=== PATIENT | male | born 1970 | race Caucasian/White ===

== ENCOUNTER 2017-06-13 16:31 | Emergency (ER) | payer OTHER ==
[~2017-06-13] VITALS: Ht 195.6 cm; Wt 125.0 kg
[2017-06-13 16:31] VITALS: BP 179/119
--- NOTE | 2017-06-13 18:09 | REP ---
PA and lateral chest: Comparison is the portable study of 06/24/2014. No sternal fracture is identified on plain films. Depending on symptomatology consider CT follow-up. There is no pneumothorax, hemothorax or pulmonary contusion. Lung srivastava are clear. Cardiac size normal. The ariella, mediastinum, bony thorax otherwise unremarkable. Impression: Essentially negative chest. No sternal fracture. Depending on symptomatology consider CT. Signed by Guido Soto MD 06/13/2017 06:00 P
[2017-06-13] MEDS ORDERED: IBUP-1022 PO (18:10)
--- NOTE | 2017-06-14 09:08 | ECGEPIP ---
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
== END 2017-06-13 18:31 | disposition home or self-care (01) ==
LOC: M ED 16:31
DX: S20.219A Contusion of unspecified front wall of thorax, initial encounter (principal); V49.40XA Driver injured in collision with unspecified motor vehicles in traffic accident, initial encounter; Y92.410 Unspecified street and highway as the place of occurrence of the external cause; Y93.89 Activity, other specified; Y99.9 Unspecified external cause status

== ENCOUNTER 2017-09-03 22:21 | Emergency (ER) | payer OTHER ==
[2017-09-03] MEDS: KETOROLAC 30 MG/ML VIAL (J1885) IV (23:45)
[2017-09-04 00:15] LABS: BASO # 0.1 10^3/uL (0.0-0.2); EOS # 0.2 10^3/uL (0.0-0.50); EOS % 2.5 % (0.0-3.0); HEMOGLOBIN 13.3 g/dl (14.0-18.0); IMMATURE GRANULOCYTE % 0.3 % (0-0); LYMPH # 2.3 10^3/uL (1.5-4.5); LYMPH % 25.7 % (24.0-44.0); MEAN CORPUSCULAR HEMOGLOBIN 28.2 pg (27.0-33.0); MEAN CORPUSCULAR HGB CONC 33.3 g/dl (32.0-36.5); MEAN CORPUSCULAR VOLUME 84.7 fl (80.0-96.0); MONO # 0.9 10^3/uL (0.0-0.8); MONO % 9.5 % (0.0-5.0); NEUTROPHILS # 5.4 10^3/uL (1.8-7.7); PLATELET COUNT, AUTOMATED 261 10^3/uL (150-450); RED BLOOD COUNT 4.72 10^6/uL (4.30-6.10); RED CELL DISTRIBUTION WIDTH 13.1 % (11.5-14.5); WHITE BLOOD COUNT 8.9 10^3/uL (4.0-10.0)
[2017-09-04 00:18] LABS: INR 0.96; PROTHROMBIN TIME 12.9 SECONDS (12.4-14.5)
[2017-09-04 00:40] LABS: ANION GAP 7 MEQ/L (8-16); BLOOD UREA NITROGEN 24 MG/DL (7-18); CALCIUM LEVEL 8.8 MG/DL (8.5-10.1); CARBON DIOXIDE LEVEL 27 MEQ/L (21-32); CHLORIDE LEVEL 104 MEQ/L (98-107); CPK CREATINE PHOSPHOKINASE 82 U/L (39-308); GLOMERULAR FILTRATION RATE > 60.0 (>60); GLUCOSE, FASTING 92 MG/DL (70-105); MB/CK RELATIVE INDEX 1.21 (< OR =4); POTASSIUM SERUM 3.9 MEQ/L (3.5-5.1); SODIUM LEVEL 138 MEQ/L (136-145); TROPONIN I < 0.02 NG/ML (< 0.10)
[2017-09-04] MEDS ORDERED: ISOVUE-370 76% 100ML VIAL (Q9967) As Ordered (01:26)
[2017-09-04] MEDS: NS 1,000 ML IV (01:30)
== END 2017-09-04 02:13 | disposition home or self-care (01) ==
LOC: M ED 22:21
DX: R07.89 Other chest pain (principal); Z91.040 Latex allergy status; Z88.1 Allergy status to other antibiotic agents; Z88.2 Allergy status to sulfonamides
CPT/HCPCS: Q9967

== ENCOUNTER 2018-09-08 00:26 | Emergency (ER) | payer OTHER ==
[~2018-09-08 00:26] MED LIST: IBUP-1022 PO; KETO10TAB PO
[2018-09-08] MEDS ORDERED: ASPIRIN 81 MG CHEW TABLET PO ONE (00:45)
[2018-09-08] MEDS ORDERED: NITROGLYCERIN 0.4 MG SUBL TABLET SL PRN (00:45)
[2018-09-08] MEDS ORDERED: DOXY100C PO (00:49)
[2018-09-08] MEDS ORDERED: TESS100C PO (00:49)
[2018-09-08 00:51] LABS: BASO # 0.1 10^3/uL (0.0-0.2); EOS # 0.2 10^3/uL (0.0-0.50); EOS % 2.4 % (0.0-3.0); HEMATOCRIT 40.4 % (42.0-52.0); HEMOGLOBIN 13.4 g/dl (13.5-17.5); LYMPH # 2.1 10^3/uL (1.5-4.5); LYMPH % 29.1 % (24.0-44.0); MEAN CORPUSCULAR HEMOGLOBIN 28.6 pg (27.0-33.0); MEAN CORPUSCULAR HGB CONC 33.2 g/dl (32.0-36.5); MEAN CORPUSCULAR VOLUME 86.3 fl (80.0-96.0); MONO # 0.6 10^3/uL (0.0-0.8); NEUTROPHILS # 4.2 10^3/uL (1.8-7.7); NEUTROPHILS % 59.2 % (36.0-66.0); PLATELET COUNT, AUTOMATED 269 10^3/uL (150-450); RED BLOOD COUNT 4.68 10^6/uL (4.30-6.10); WHITE BLOOD COUNT 7.1 10^3/uL (4.0-10.0)
[2018-09-08 01:02] VITALS: BP 140/84
[2018-09-08 01:05] LABS: INR 1.04; PROTHROMBIN TIME 13.7 SECONDS (12.1-14.4)
[2018-09-08 01:25] LABS: ALBUMIN 3.7 GM/DL (3.2-5.2); ALT/SGPT 22 U/L (12-78); BILIRUBIN,DIRECT 0.1 MG/DL (0.0-0.2); BILIRUBIN,TOTAL 0.6 MG/DL (0.2-1.0); BLOOD UREA NITROGEN 16 MG/DL (7-18); CALCIUM LEVEL 8.5 MG/DL (8.5-10.1); CARBON DIOXIDE LEVEL 26 MEQ/L (21-32); CHLORIDE LEVEL 106 MEQ/L (98-107); CPK CREATINE PHOSPHOKINASE 124 U/L (39-308); CREATININE FOR GFR 0.99 MG/DL (0.70-1.30); GLOMERULAR FILTRATION RATE > 60.0 (>60); GLUCOSE, FASTING 90 MG/DL (70-100); LIPASE 73 U/L (73-393); MB/CK RELATIVE INDEX 1.37 (< OR =4); SODIUM LEVEL 139 MEQ/L (136-145); TOTAL PROTEIN 6.8 GM/DL (6.4-8.2); TROPONIN I < 0.02 NG/ML (< 0.10)
[2018-09-08] MEDS ORDERED: ISOVUE-370 76% 100ML VIAL (Q9967) As Ordered ONE (01:31)
--- NOTE | 2018-09-08 02:15 | REPVR ---
EXAM: CT Angiography Chest With Contrast EXAM DATE/TIME: 09/08/2018 1:27 AM CLINICAL HISTORY: 48 years old, male; Pain; Chest pain; Type not specified TECHNIQUE: Axial computed tomographic angiography images of the chest with intravenous contrast using CT angiography protocol. All CT scans at this facility use at least one of these dose optimization techniques: automated exposure control; mA and/or kV adjustment per patient size (includes targeted exams where dose is matched to clinical indication); or iterative reconstruction. Coronal and sagittal reformatted images were created and reviewed. MIP reconstructed images were created and reviewed. CONTRAST: 75 ml of iso administered intravenously. COMPARISON: CT ANGIO CHEST 09/04/2017 1:33 AM FINDINGS: Pulmonary arteries: The main pulmonary artery measures 34 mm. No central pulmonary embolism is identified. Aorta: The ascending thoracic aorta measures 28 mm. Lungs: Motion artifact in the lungs with image degradation. Pleural space: Normal. No pneumothorax. No pleural effusion. Heart: Normal. No cardiomegaly. No pericardial effusion. Gallbladder and bile ducts: The gallbladder is contracted with no stones. Lymph nodes: Unremarkable. No enlarged lymph nodes. Bones/joints: Unremarkable. No acute fracture. Soft tissues: Unremarkable. IMPRESSION: There has been little change from 09/04/2017. No acute interval central pulmonary embolism is identified. Electronically signed by: Michael Smith On 09/08/2018 02:14:49 AM
[2018-09-08 04:00] VITALS: BP 135/86
[2018-09-08 04:02] LABS: CPK CREATINE PHOSPHOKINASE 177 U/L (39-308); MB/CK RELATIVE INDEX 1.07 (< OR =4); TROPONIN I < 0.02 NG/ML (< 0.10)
--- NOTE | 2018-09-08 10:48 | ECGEPIP ---
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
--- NOTE | 2018-09-08 10:48 | ECGEPIP ---
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
== END 2018-09-08 04:33 | disposition home or self-care (01) ==
LOC: M ED 00:26
DX: R07.9 Chest pain, unspecified (principal); Z91.048 Other nonmedicinal substance allergy status; Z91.040 Latex allergy status; Z88.2 Allergy status to sulfonamides; Z88.1 Allergy status to other antibiotic agents; Z79.899 Other long term (current) drug therapy
CPT/HCPCS: 71275; 80048; 80076; 82550; 82553; 83690; 85025; 85610; 85730; 93005; 93041; 94760; 99285; Q9967

== ENCOUNTER → 2018-10-17 | Outpatient (REF) | payer OTHER ==
[~2018-10-17] MED LIST changes: +DOXY100C PO; +TESS100C PO
[2018-10-17 13:26] LABS: CHOLESTEROL RISK RATIO 3.923 (<5); THYROID STIMULATING HORMONE 2.24 uIU/ML (0.358-3.740)
[2018-10-17 15:20] LABS: HEMOGLOBIN A1c 5.7 %
== END ==
LOC: M SFHCPLAZ 10:24
PROVIDERS: ATTEND Family Medicine
DX: Z13.228 Encounter for screening for other metabolic disorders (principal)

== ENCOUNTER 2018-12-23 00:33 | Emergency (ER) | payer OTHER ==
[~2018-12-23] VITALS: Ht 195.6 cm; Wt 143.2 kg
[2018-12-23] MEDS ORDERED: PRED20TA PO (02:26)
[2018-12-23] MEDS ORDERED: methylPREDNISolone INJ 125 MG/2 ML VIAL (J2930) IM ONE (02:30)
[2018-12-23 02:42] VITALS: BP 124/70
== END 2018-12-23 02:48 | disposition home or self-care (01) ==
LOC: M ED 00:33
DX: J30.2 Other seasonal allergic rhinitis (principal); Z88.2 Allergy status to sulfonamides; Z91.040 Latex allergy status; Z91.018 Allergy to other foods
CPT/HCPCS: 96372; 99283; J2930

== ENCOUNTER → 2019-01-02 | Outpatient (CLI) | payer OTHER ==
[~2019-01-02] MED LIST changes: +PRED20TA PO
--- NOTE | 2019-01-05 10:04 | SLEEPHOME ---
DATE OF STUDY: 01/02/2019 ORDERED BY: Dr. Gant Diagnostic home sleep testing was performed due to concern for the obstructive sleep apnea syndrome. For testing, a nocturnal T3 respiratory monitoring device was used. Continuous record was made of pulse, oxygen saturation, airflow, chest and abdominal strain and body position. 10 hours and 59 minutes of data were reviewed. There were 5 hours and 30 minutes marked as time in bed. During the interval marked time in bed. there were 190 respiratory events identified of 10 seconds in duration or greater for a respiratory event index of 34.5. The events were primarily obstructive. Baseline pulse rate 60 beats per minute, pulse rate ranged 25-86. Baseline saturation 95% and saturation fell to 78%. The oxygen desaturation index was 22 and testing was performed in both supine and nonsupine positions. IMPRESSION: Abnormal home sleep testing with repetitive respiratory events and oxygen desaturations to 78% with a respiratory event index of 34.5 is consistent with the obstructive sleep apnea syndrome. RECOMMENDATION: The patient should be encouraged to undergo formal sleep evaluation and in-laboratory pressure titration.
== END ==
LOC: M SLEEP HO 10:59
PROVIDERS: ATTEND Internal Medicine Pulmonary Disease
DX: G47.30 Sleep apnea, unspecified (principal)

== ENCOUNTER 2019-03-19 23:17 | Emergency (ER) | payer OTHER ==
[~2019-03-19] VITALS: Ht 195.6 cm; Wt 136.8 kg
[2019-03-19] MEDS ORDERED: ATOR1TAB21 PO (23:24)
[2019-03-19] MEDS ORDERED: RANI1TAB38 PO (23:24)
[2019-03-19] MEDS ORDERED: ASPI1CHW2 PO (23:24)
[2019-03-20] MEDS ORDERED: OFLO3OPSO OP (01:49)
[2019-03-20] MEDS ORDERED: AMOX500C PO (01:49)
[2019-03-20 02:00] VITALS: BP 130/78
== END 2019-03-20 02:02 | disposition home or self-care (01) ==
LOC: M ED 23:17
DX: H66.91 Otitis media, unspecified, right ear (principal); H10.33 Unspecified acute conjunctivitis, bilateral; E78.5 Hyperlipidemia, unspecified; Z79.82 Long term (current) use of aspirin; Z79.899 Other long term (current) drug therapy; Z88.2 Allergy status to sulfonamides; Z91.040 Latex allergy status; Z91.018 Allergy to other foods

== ENCOUNTER → 2019-05-03 | Outpatient (REF) | payer OTHER ==
[~2019-05-03] MED LIST changes: +AMOX500C PO; +ASPI1CHW2 PO; +ATOR1TAB21 PO; +OFLO3OPSO OP; +RANI1TAB38 PO
[2019-05-03 19:47] LABS: TOTAL 25(OH) VITAMIN D 25.1 NG/ML (30.0-100.0)
== END ==
LOC: M SFHCPLAZ 14:11
PROVIDERS: ATTEND Family Medicine
DX: R41.3 Other amnesia (principal)

== ENCOUNTER 2019-05-20 19:47 | Emergency (ER) | payer OTHER ==
[~2019-05-20] VITALS: Ht 195.6 cm; Wt 131.0 kg
[2019-05-20 19:48] VITALS: BP 136/74
[2019-05-20] MEDS ORDERED: IBUPROFEN 800 MG TAB PO ONE (21:45)
[2019-05-20] MEDS ORDERED: IBUP80TA PO (21:47)
== END 2019-05-20 22:09 | disposition home or self-care (01) ==
LOC: M ED 19:47
DX: M79.672 Pain in left foot (principal); Y93.01 Activity, walking, marching and hiking; Y92.9 Unspecified place or not applicable; E78.5 Hyperlipidemia, unspecified; Z88.2 Allergy status to sulfonamides; Z91.040 Latex allergy status; Z91.018 Allergy to other foods; Z79.899 Other long term (current) drug therapy; Z79.82 Long term (current) use of aspirin

== ENCOUNTER 2019-06-16 22:42 | Emergency (ER) | payer OTHER ==
[~2019-06-16] VITALS: Ht 195.6 cm; Wt 126.4 kg
[~2019-06-16 22:42] MED LIST changes: +IBUP80TA PO
[2019-06-16] MEDS ORDERED: NITR0.4S14 SL (23:11)
[2019-06-16] MEDS ORDERED: METO1TAB32 PO (23:11)
[2019-06-16] MEDS ORDERED: BUPR150T3 PO (23:11)
[2019-06-17 00:09] LABS: BLOOD UREA NITROGEN 19 MG/DL (7-18); CALCIUM LEVEL 8.8 MG/DL (8.5-10.1); CARBON DIOXIDE LEVEL 28 MEQ/L (21-32); CHLORIDE LEVEL 110 MEQ/L (98-107); CK-MB VALUE MASS 2.3 NG/ML (<3.6); CPK CREATINE PHOSPHOKINASE 91 U/L (39-308); CREATININE FOR GFR 1.19 MG/DL (0.70-1.30); GLOMERULAR FILTRATION RATE > 60.0 (>60); GLUCOSE, FASTING 97 MG/DL (70-100); MB/CK RELATIVE INDEX 2.53 (< OR =4); POTASSIUM SERUM 3.9 MEQ/L (3.5-5.1); SODIUM LEVEL 143 MEQ/L (136-145); TROPONIN I < 0.02 NG/ML (< 0.10)
[2019-06-17 00:11] LABS: BASO # 0.1 10^3/uL (0.0-0.2); BASO % 1.1 % (0.0-1.0); EOS # 0.2 10^3/uL (0.0-0.5); EOS % 3.3 % (0.0-3.0); HEMATOCRIT 40.7 % (42.0-52.0); LYMPH # 1.7 10^3/uL (1.5-5.0); LYMPH % 27.1 % (24.0-44.0); MEAN CORPUSCULAR HEMOGLOBIN 28.6 pg (27.0-33.0); MEAN CORPUSCULAR HGB CONC 31.9 g/dl (32.0-36.5); MEAN CORPUSCULAR VOLUME 89.5 fl (80.0-96.0); MONO # 0.6 10^3/uL (0.0-0.8); MONO % 9.2 % (0.0-5.0); NEUTROPHILS # 3.8 10^3/uL (1.5-8.5); NEUTROPHILS % 59.1 % (36.0-66.0); PLATELET COUNT, AUTOMATED 231 10^3/uL (150-450); RED BLOOD COUNT 4.55 10^6/uL (4.30-6.10); WHITE BLOOD COUNT 6.4 10^3/uL (4.0-10.0)
[2019-06-17] MEDS ORDERED: ISOVUE-370 76% 100ML VIAL (Q9967) As Ordered ONE (01:12)
[2019-06-17 01:15] LABS: CK-MB VALUE MASS 2.2 NG/ML (<3.6); CPK CREATINE PHOSPHOKINASE 97 U/L (39-308); MB/CK RELATIVE INDEX 2.27 (< OR =4); TROPONIN I < 0.02 NG/ML (< 0.10)
[2019-06-17] MEDS ORDERED: KETOROLAC 30 MG/ML VIAL (J1885) IV ONE (01:15)
--- NOTE | 2019-06-17 01:44 | REPVR ---
PROCEDURE INFORMATION: Exam: CT Angiography Chest With Contrast Exam date and time: 06/17/2019 1:18 AM Clinical history: 49 years old, male; Shortness of breath; Chest pain; Type not specified; Additional info: Chest pain, SOB TECHNIQUE: Imaging protocol: Computed tomographic angiography of the chest with intravenous contrast. 3D rendering: MIP reconstructed images were created and reviewed. Radiation optimization: All CT scans at this facility use at least one of these dose optimization techniques: automated exposure control; mA and/or kV adjustment per patient size (includes targeted exams where dose is matched to clinical indication); or iterative reconstruction. Contrast material: ISOVUE 370; Contrast volume: 100 ml; Contrast route: IV; COMPARISON: CT ANGIO CHEST 09/08/2018 1:30 AM FINDINGS: Pulmonary arteries: No focal pulmonary artery filling defect to suggest acute pulmonary embolus. Aorta: No thoracic aortic aneurysm or dissection. Lungs: Pulmonary vascular/interstitial pattern does not suggest active pulmonary edema. No suspicious lung mass or air space process. No central endobronchial lesion. Pleural space: No pleural effusion or pneumothorax. Heart: No cardiac enlargement or pericardial effusion. Lymph nodes: No enlarged mediastinal lymph nodes. Bones/joints: Bony structures show no acute fracture or destructive process. IMPRESSION: 1. No evidence of acute pulmonary embolus. 2. No other acute or concerning focal intrathoracic abnormality. Electronically signed by: Charlie Nelson On 06/17/2019 01:43:42 AM
[2019-06-17 02:28] VITALS: BP 119/69
--- NOTE | 2019-06-17 11:59 | ECGEPIP ---
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
== END 2019-06-17 02:30 | disposition home or self-care (01) ==
LOC: M ED 22:42
DX: R07.9 Chest pain, unspecified (principal); E78.5 Hyperlipidemia, unspecified; I11.9 Hypertensive heart disease without heart failure; Z79.82 Long term (current) use of aspirin; Z79.899 Other long term (current) drug therapy; Z88.2 Allergy status to sulfonamides
CPT/HCPCS: 71275; 80048; 82550; 82553; 85025; 93005; 93041; 94760; 96374; 99285; J1885; Q9967

== ENCOUNTER 2019-08-02 20:30 | Emergency (ER) | payer OTHER ==
[~2019-08-02] VITALS: Ht 195.6 cm; Wt 120.0 kg
[~2019-08-02 20:30] MED LIST changes: +BUPR150T3 PO; +METO1TAB32 PO; +NITR0.4S14 SL
[2019-08-02 20:35] VITALS: BP 140/83
[2019-08-02] MEDS ORDERED: MELO15TA28 PO (20:41)
[2019-08-02] MEDS ORDERED: ACETAMINOPHEN 500 MG TAB PO ONE (23:00)
--- NOTE | 2019-08-03 08:21 | REP ---
Left knee series: Five views. History: Trauma. Findings: Five views of the left knee demonstrate patellofemoral and mild tibiofemoral osteoarthritic spurring. There is no evidence of fracture or joint effusion. Impression: Mild three compartment osteoarthritic spurring. No traumatic abnormality. Electronically Signed by Sandeep Lewis MD 08/03/2019 08:13 A
== END 2019-08-02 23:56 | disposition home or self-care (01) ==
LOC: M ED 20:30
DX: S80.02XA Contusion of left knee, initial encounter (principal); W00.0XXA Fall on same level due to ice and snow, initial encounter; Y92.018 Other place in single-family (private) house as the place of occurrence of the external cause; E78.5 Hyperlipidemia, unspecified; Z79.899 Other long term (current) drug therapy; Z79.82 Long term (current) use of aspirin; Z88.1 Allergy status to other antibiotic agents; Z88.2 Allergy status to sulfonamides; Z91.018 Allergy to other foods; Z91.040 Latex allergy status

== ENCOUNTER → 2019-12-03 | Outpatient (CLI) | payer OTHER ==
[~2019-12-03] MED LIST changes: +MELO15TA28 PO
--- NOTE | 2019-12-05 11:51 | SLEEPCENT ---
DATE OF STUDY: 12/03/2019 ORDERED BY: Dr. Gant Nocturnal polysomnography was performed for evaluation of sleep physiology in this patient with a prior history of obstructive sleep apnea syndrome. 7 hours and 10 minutes of data were reviewed. There were 344.5 minutes of sleep identified. Sleep latency was normal at 12.5 minutes. Rapid eye movement (REM) latency was delayed at 138 minutes. Sleep architecture showed fragmentation. There were 3 REM cycles noted. Overall sleep efficiency was 80.8%. The patient's electrocardiogram showed a sinus rhythm with an average heart rate of 60 beats per minute. Electroencephalogram (EEG) showed normal waveforms for awake and sleep. There were 27 respiratory events identified of 10 seconds in duration or greater for an apnea-hypopnea index of 5.1. The events were primarily obstructive, not exclusive to sleep stage and not exclusive to body posture. Arousals from respiratory events occurred 0.9 times per hour. No significant oxygen desaturations were seen. The activity in the limb leads resulted in a limb movement arousal index of 12.2. There was 1 train of 30 events noted, IMPRESSSION: Obstructive sleep apnea syndrome (G47.33). Apnea-hypopnea index 5.1. RECOMMENDATION: Given the patient's symptoms, referral back to the sleep disorder center for pressure therapy is recommended. In the interim, alcohol and sedative avoidance should be practiced and caution exercised during the operation of motor vehicles.
== END ==
LOC: M SLEEP 20:00
PROVIDERS: ATTEND Internal Medicine Pulmonary Disease
DX: G47.33 Obstructive sleep apnea (adult) (pediatric) (principal)

== ENCOUNTER 2020-01-14 22:19 | Emergency (ER) | payer OTHER ==
[~2020-01-14] VITALS: Ht 195.6 cm; Wt 109.1 kg
[2020-01-14] MEDS ORDERED: AUGM875T28 PO (23:05)
[2020-01-14] MEDS ORDERED: BOOSTRIX/ADACEL VACCINE (DIPHTH/PERTUSS/ACELL/TETANUS) 0.5ML SYR IM ONE (23:15)
[2020-01-14] MEDS ORDERED: AUGMENTIN 875 MG TAB PO ONE (23:15)
[2020-01-14 23:35] VITALS: BP 110/71
== END 2020-01-14 23:36 | disposition home or self-care (01) ==
LOC: M ED 22:19
DX: S60.511A Abrasion of right hand, initial encounter (principal); W55.03XA Scratched by cat, initial encounter; Y92.89 Other specified places as the place of occurrence of the external cause; Y93.9 Activity, unspecified; Y99.9 Unspecified external cause status; Z88.0 Allergy status to penicillin; Z91.018 Allergy to other foods; Z91.040 Latex allergy status

== ENCOUNTER 2020-01-24 19:50 | Emergency (ER) | payer OTHER ==
[~2020-01-24] VITALS: Ht 195.6 cm; Wt 109.4 kg
[~2020-01-24 19:50] MED LIST changes: +AUGM875T28 PO
[2020-01-24 20:19] LABS: BASO # 0.1 10^3/uL (0.0-0.2); BASO % 1.3 % (0.0-1.0); EOS # 0.2 10^3/uL (0.0-0.5); EOS % 2.7 % (0.0-3.0); HEMATOCRIT 37.7 % (42.0-52.0); HEMOGLOBIN 12.5 g/dl (13.5-17.5); LYMPH # 1.7 10^3/uL (1.5-5.0); LYMPH % 26.3 % (24.0-44.0); MEAN CORPUSCULAR HEMOGLOBIN 28.8 pg (27.0-33.0); MEAN CORPUSCULAR HGB CONC 33.2 g/dl (32.0-36.5); MEAN CORPUSCULAR VOLUME 86.9 fl (80.0-96.0); MONO # 0.6 10^3/uL (0.0-0.8); MONO % 9.4 % (0.0-5.0); NEUTROPHILS # 3.8 10^3/uL (1.5-8.5); NEUTROPHILS % 60.1 % (36.0-66.0); PLATELET COUNT, AUTOMATED 250 10^3/uL (150-450); RED BLOOD COUNT 4.34 10^6/uL (4.30-6.10); WHITE BLOOD COUNT 6.3 10^3/uL (4.0-10.0)
[2020-01-24] MEDS ORDERED: IBUP-1022 PO (21:13)
[2020-01-24 21:27] VITALS: BP 130/77
--- NOTE | 2020-01-24 21:40 | ECGEPIP ---
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
--- NOTE | 2020-01-25 08:59 | REP ---
REASON: Chest pain. COMPARISON: 08/16/2018 the latest prior. FINDINGS: The technique utilized in obtaining the radiograph has magnified the cardiac silhouette and accentuated the interstitial markings. The superior mediastinal structures are midline. The cardiac silhouette is unremarkable in size, shape, and position. The diaphragmatic surfaces of the lungs are regular, and the costophrenic angles are clear. The pulmonary srivastava are clear. The imaged osseous structures are intact. IMPRESSION: There is no acute cardiopulmonary disease. Electronically Signed by Mat Parada DO 01/25/2020 09:22 A
== END 2020-01-24 21:30 | disposition home or self-care (01) ==
LOC: M ED 19:50
DX: M94.0 Chondrocostal junction syndrome [Tietze] (principal); K21.9 Gastro-esophageal reflux disease without esophagitis; E78.00 Pure hypercholesterolemia, unspecified; Z82.49 Family history of ischemic heart disease and other diseases of the circulatory system; Z79.899 Other long term (current) drug therapy; Z79.82 Long term (current) use of aspirin; Z88.1 Allergy status to other antibiotic agents; Z88.2 Allergy status to sulfonamides; Z91.018 Allergy to other foods; Z91.040 Latex allergy status

== ENCOUNTER → 2020-06-03 | Outpatient (CLI) | payer OTHER ==
[2020-06-03 14:35] LABS: BASO # 0.1 10^3/uL (0.0-0.2); BASO % 0.9 % (0.0-1.0); EOS # 0.2 10^3/uL (0.0-0.5); EOS % 2.4 % (0.0-3.0); HEMATOCRIT 42.1 % (42.0-52.0); HEMOGLOBIN 13.5 g/dl (13.5-17.5); LYMPH # 1.3 10^3/uL (1.5-5.0); MEAN CORPUSCULAR HEMOGLOBIN 29.1 pg (27.0-33.0); MEAN CORPUSCULAR HGB CONC 32.1 g/dl (32.0-36.5); MEAN CORPUSCULAR VOLUME 90.7 fl (80.0-96.0); MONO # 0.6 10^3/uL (0.0-0.8); MONO % 8.2 % (0.0-5.0); NEUTROPHILS # 4.6 10^3/uL (1.5-8.5); NEUTROPHILS % 69.1 % (36.0-66.0); PLATELET COUNT, AUTOMATED 258 10^3/uL (150-450); RED BLOOD COUNT 4.64 10^6/uL (4.30-6.10); WHITE BLOOD COUNT 6.7 10^3/uL (4.0-10.0)
[2020-06-03 14:59] LABS: ERYTHROCYTE SEDIMENTATION RATE 9 mm/hr (0-15)
[2020-06-03 15:15] LABS: ALBUMIN 3.6 GM/DL (3.2-5.2); ALT/SGPT 29 U/L (12-78); BILIRUBIN,TOTAL 0.5 MG/DL (0.2-1.0); BLOOD UREA NITROGEN 14 MG/DL (7-18); C REACTIVE PROTEIN QUANTITATIV < 0.30 MG/DL (0.00-0.30); CALCIUM LEVEL 9.5 MG/DL (8.5-10.1); CARBON DIOXIDE LEVEL 32 MEQ/L (21-32); CHLORIDE LEVEL 107 MEQ/L (98-107); CHOLESTEROL LEVEL 145 MG/DL (<200); CHOLESTEROL RISK RATIO 2.377 (<5); CREATININE FOR GFR 0.95 MG/DL (0.70-1.30); GLOMERULAR FILTRATION RATE > 60.0 (>60); GLUCOSE, FASTING 72 MG/DL (70-100); HDL CHOLESTEROL 61 MG/DL (>40); LDL CHOLESTEROL 65 MG/DL (<100); NON-HDL-C 84 MG/DL; POTASSIUM SERUM 4.1 MEQ/L (3.5-5.1); SODIUM LEVEL 138 MEQ/L (136-145); TOTAL PROTEIN 7.4 GM/DL (6.4-8.2); TRIGLYCERIDES LEVEL 96 MG/DL (<150)
== END ==
LOC: M LAB 13:34
PROVIDERS: ATTEND Family Medicine
DX: R63.4 Abnormal weight loss (principal)

== ENCOUNTER 2021-01-31 05:56 | Emergency (ER) | payer MEDICAID, OTHER, SELFPAY ==
[~2021-01-31] VITALS: Ht 195.6 cm; Wt 122.7 kg
[~2021-01-31 05:56] MED LIST changes: +BUPR150T12 PO; -BUPR150T3 PO
[2021-01-31 06:39] LABS: BASO # 0.1 10^3/uL (0.0-0.2); BASO % 1.3 % (0.0-1.0); EOS # 0.2 10^3/uL (0.0-0.5); EOS % 3.7 % (0.0-3.0); HEMATOCRIT 40.5 % (42.0-52.0); HEMOGLOBIN 13.2 g/dl (13.5-17.5); LYMPH # 1.7 10^3/uL (1.5-5.0); LYMPH % 27.7 % (24.0-44.0); MEAN CORPUSCULAR HEMOGLOBIN 28.9 pg (27.0-33.0); MEAN CORPUSCULAR HGB CONC 32.6 g/dl (32.0-36.5); MEAN CORPUSCULAR VOLUME 88.8 fl (80.0-96.0); MONO # 0.6 10^3/uL (0.0-0.8); MONO % 9.9 % (2.0-8.0); NEUTROPHILS # 3.4 10^3/uL (1.5-8.5); NEUTROPHILS % 57.2 % (36.0-66.0); PLATELET COUNT, AUTOMATED 214 10^3/uL (150-450); RED BLOOD COUNT 4.56 10^6/uL (4.30-6.10)
[2021-01-31] MEDS ORDERED: FAMO20TA PO (07:00)
[2021-01-31 07:03] LABS: BLOOD UREA NITROGEN 27 MG/DL (7-18); CALCIUM LEVEL 9.1 MG/DL (8.5-10.1); CARBON DIOXIDE LEVEL 28 MEQ/L (21-32); CHLORIDE LEVEL 111 MEQ/L (98-107); CK-MB VALUE MASS 1.8 NG/ML (<3.6); CPK CREATINE PHOSPHOKINASE 101 U/L (39-308); CREATININE FOR GFR 1.01 MG/DL (0.70-1.30); GLOMERULAR FILTRATION RATE > 60.0 (>60); GLUCOSE, FASTING 102 MG/DL (70-100); MB/CK RELATIVE INDEX 1.78 (< OR =4); SODIUM LEVEL 143 MEQ/L (136-145); TROPONIN I < 0.02 NG/ML (< 0.10)
[2021-01-31] MEDS ORDERED: GI COCKTAIL 50ML BTL(HYOSCYAMINE/MAALOX/LIDOCAINE VISCOUS)(1:3:1) PO ONE (07:20)
[2021-01-31] MEDS ORDERED: KETOROLAC 30 MG/ML 1ML VIAL IV ONE (08:00)
--- NOTE | 2021-01-31 08:06 | ECGEPIP ---
[facility] - ED Test Date: 2021-01-31 Pat Name: YAKOV PRESTON Department: Room: - Gender: Male [place]st[place] Hand: DAVID GUADARRAMA : 1970 Requested By: WONG STONER Order Number: [id number] Reading MD: Ben Glass Measurements Intervals [place] Rate: 56 P: 25 MD: 148 QRS: 26 QRSD: 84 T: 47 QT: 402 QTc: 387 Interpretive Statements Sinus bradycardia Similar to tracing done 01-24-20 Electronically Signed on 01-31-2021 8:06:24 EDT by Ben Glass
--- NOTE | 2021-01-31 08:17 | REP ---
INDICATION: CHEST PAIN. COMPARISON: None. FINDINGS: The technique utilized in obtaining the radiograph has magnified the cardiac silhouette and accentuated the interstitial markings. The superior mediastinal structures are midline. The cardiac silhouette is unremarkable in size, shape, and position. The diaphragmatic surfaces of the lungs are regular, and the costophrenic angles are clear. The pulmonary srivastava are clear. The imaged osseous structures are intact. IMPRESSION: There is no acute cardiopulmonary disease. <Electronically signed by Mat Parada > 01/31/21 0825
[2021-01-31 09:23] LABS: CPK CREATINE PHOSPHOKINASE 93 U/L (39-308); MB/CK RELATIVE INDEX 2.15 (< OR =4); TROPONIN I < 0.02 NG/ML (< 0.10)
[2021-01-31] MEDS ORDERED: KETO10TAB PO (09:55)
[2021-01-31] MEDS ORDERED: SUCR1TA PO (09:55)
[2021-01-31] MEDS ORDERED: OMEP40CA4 PO (09:55)
[2021-01-31 10:19] VITALS: BP 120/88
--- NOTE | 2021-02-01 14:18 | ECGEPIP ---
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
== END 2021-01-31 10:20 | disposition home or self-care (01) ==
LOC: M ED 05:56
DX: R07.89 Other chest pain (principal); K21.9 Gastro-esophageal reflux disease without esophagitis; G47.33 Obstructive sleep apnea (adult) (pediatric); Z79.899 Other long term (current) drug therapy; Z79.82 Long term (current) use of aspirin; Z88.1 Allergy status to other antibiotic agents; Z88.2 Allergy status to sulfonamides; Z91.018 Allergy to other foods; Z91.040 Latex allergy status
CPT/HCPCS: 71045; 80048; 82550; 82553; 85025; 93005; 93041; 94760; 96374; 99285; J1885

== ENCOUNTER 2021-05-03 13:07 | Emergency (ER) | payer MEDICAID, OTHER ==
[~2021-05-03] VITALS: Ht 195.6 cm; Wt 114.5 kg
[2021-05-03 13:07] VITALS: BP 120/73
[~2021-05-03 13:07] MED LIST changes: -DOXY100C PO; +DOXY100C3 PO; +FAMO20TA PO; +OMEP40CA4 PO; +SUCR1TA PO
== END 2021-05-03 17:54 | disposition home or self-care (01) ==
LOC: M ED 13:07
DX: U07.1 COVID-19 (principal); E78.5 Hyperlipidemia, unspecified; Z88.2 Allergy status to sulfonamides; Z91.018 Allergy to other foods; Z91.040 Latex allergy status; Z79.82 Long term (current) use of aspirin; Z79.899 Other long term (current) drug therapy

== ENCOUNTER → 2021-12-31 | Outpatient (CLI) | payer OTHER ==
[2021-12-31 09:49] LABS: BASO # 0.1 10^3/uL (0.0-0.2); BASO % 1.1 % (0.0-1.0); EOS # 0.2 10^3/uL (0.0-0.5); EOS % 2.8 % (0.0-3.0); HEMATOCRIT 43.2 % (42.0-52.0); HEMOGLOBIN 14.4 g/dl (13.5-17.5); LYMPH # 1.6 10^3/uL (1.5-5.0); LYMPH % 24.7 % (24.0-44.0); MEAN CORPUSCULAR HEMOGLOBIN 30.1 pg (27.0-33.0); MEAN CORPUSCULAR HGB CONC 33.3 g/dl (32.0-36.5); MEAN CORPUSCULAR VOLUME 90.2 fl (80.0-96.0); MONO # 0.6 10^3/uL (0.0-0.8); MONO % 9.2 % (2.0-8.0); NEUTROPHILS # 4.1 10^3/uL (1.5-8.5); PLATELET COUNT, AUTOMATED 234 10^3/uL (150-450); RED BLOOD COUNT 4.79 10^6/uL (4.30-6.10); WHITE BLOOD COUNT 6.5 10^3/uL (4.0-10.0)
[2021-12-31 11:23] LABS: ALBUMIN 3.7 GM/DL (3.2-5.2); ALT/SGPT 172 U/L (12-78); BILIRUBIN,TOTAL 0.5 MG/DL (0.2-1.0); BLOOD UREA NITROGEN 18 MG/DL (7-18); CALCIUM LEVEL 9.4 MG/DL (8.5-10.1); CARBON DIOXIDE LEVEL 29 MEQ/L (21-32); CHLORIDE LEVEL 105 MEQ/L (98-107); CHOLESTEROL LEVEL 148 MG/DL (<200); CHOLESTEROL RISK RATIO 2.114 (<5); CREATININE FOR GFR 1.06 MG/DL (0.70-1.30); GLOMERULAR FILTRATION RATE > 60.0 (>60); GLUCOSE, FASTING 82 MG/DL (70-100); HDL CHOLESTEROL 70 MG/DL (>40); LDL CHOLESTEROL 65 MG/DL (<100); NON-HDL-C 78 MG/DL; POTASSIUM SERUM 4.3 MEQ/L (3.5-5.1); SODIUM LEVEL 141 MEQ/L (136-145); TOTAL PROTEIN 7.3 GM/DL (6.4-8.2); TRIGLYCERIDES LEVEL 63 MG/DL (<150)
== END ==
LOC: M RAD 08:38
PROVIDERS: ATTEND Family Medicine
DX: R10.11 Right upper quadrant pain (principal); E78.5 Hyperlipidemia, unspecified

== ENCOUNTER 2022-03-16 13:50 | Emergency (ER) | payer OTHER, MEDICAID ==
[~2022-03-16] VITALS: Ht 195.6 cm; Wt 132.7 kg
[2022-03-16] MEDS ORDERED: ESCITALOPRAM (14:01)
[2022-03-16 17:24] VITALS: BP 128/75
[2022-03-16] MEDS ORDERED: LIDOCAINE 5% (LIDODERM) PATCH TD ONE (17:45)
[2022-03-16] MEDS ORDERED: ACETAMINOPHEN 325 MG TAB PO ONE (17:45)
[2022-03-16 19:02] LABS: BASO # 0.1 10^3/uL (0.0-0.2); BASO % 1.2 % (0.0-1.0); EOS # 0.2 10^3/uL (0.0-0.5); EOS % 2.7 % (0.0-3.0); HEMATOCRIT 43.4 % (42.0-52.0); HEMOGLOBIN 14.1 g/dl (13.5-17.5); LYMPH # 1.5 10^3/uL (1.5-5.0); LYMPH % 25.2 % (24.0-44.0); MEAN CORPUSCULAR HGB CONC 32.5 g/dl (32.0-36.5); MEAN CORPUSCULAR VOLUME 89.1 fl (80.0-96.0); MONO # 0.4 10^3/uL (0.0-0.8); MONO % 7.5 % (2.0-8.0); NEUTROPHILS # 3.7 10^3/uL (1.5-8.5); NEUTROPHILS % 63.2 % (36.0-66.0); PLATELET COUNT, AUTOMATED 211 10^3/uL (150-450); RED BLOOD COUNT 4.87 10^6/uL (4.30-6.10); WHITE BLOOD COUNT 5.8 10^3/uL (4.0-10.0)
[2022-03-16 19:36] LABS: ALBUMIN 3.7 GM/DL (3.2-5.2); BILIRUBIN,DIRECT 0.1 MG/DL (0.0-0.2); BILIRUBIN,TOTAL 0.7 MG/DL (0.2-1.0); TOTAL PROTEIN 7.5 GM/DL (6.4-8.2)
[2022-03-16] MEDS ORDERED: LIDO5DIS41 TOP (20:04)
[2022-03-16] MEDS ORDERED: **NOTE PATIENT COMMENT** MISC XX SCH (21:00)
== END 2022-03-16 20:13 | disposition home or self-care (01) ==
LOC: M ED 13:50
DX: R07.89 Other chest pain (principal); R06.02 Shortness of breath; M54.30 Sciatica, unspecified side; E78.5 Hyperlipidemia, unspecified; Z86.16 Personal history of COVID-19; J30.2 Other seasonal allergic rhinitis; Z79.899 Other long term (current) drug therapy; Z79.82 Long term (current) use of aspirin; Z88.1 Allergy status to other antibiotic agents; Z88.2 Allergy status to sulfonamides; Z91.018 Allergy to other foods; Z91.040 Latex allergy status